=== PATIENT | male | born 2000 | race Caucasian/White ===

== ENCOUNTER 2019-05-17 09:56 | Emergency (ER) | payer BC ==
[~2019-05-17] VITALS: Ht 177.8 cm; Wt 84.1 kg
[2019-05-17 10:03] VITALS: TEMP 97.3
[2019-05-17 10:33] LABS: BASO % 0.3 % (0.0-2.0); EOS # 0.4 (0.0-0.7); EOS % 6.8 % (0-4.0); GRAN # 3.4 (1.4-6.5); LYMPH # 1.5 (1.2-3.4); LYMPH % 25.4 % (20.0-51.0); MEAN CELL VOLUME 89 fl (80.0-100.0); MEAN CORPUSCULAR HEMOGLOBIN 30 pg (27.0-31.0); MEAN CORPUSCULAR HGB CONC 34 g/dl (33.0-37.0); MEAN PLATELET VOLUME 10.5 fl (7.4-10.4); MONO # 0.6 (0.1-0.6); MONO % 9.3 % (1.7-9.3); PLATELET COUNT 186 K/mm3 (130-400); RED BLOOD COUNT 4.61 M/mm3 (4.20-5.60)
[2019-05-17 10:44] LABS: ALANINE AMINOTRANSFERASE 24 U/L (21-72); ALBUMIN 4.5 gm/dL (3.5-5.0); ALKALINE PHOSPHATASE 60 U/L (50-136); ANION GAP 7 mmol/L (7-16); AST,SGOT 20 U/L (15-37); BILIRUBIN,TOTAL 0.3 mg/dL (0.0-1.0); BLOOD UREA NITROGEN 10 mg/dL (9-20); CALCIUM 9.2 mg/dL (8.4-10.2); CARBON DIOXIDE 27 mmol/L (22-30); CHLORIDE 108 mmol/L (98-107); CREATININE, serum 1.15 (0.66-1.25); GLUCOSE 99 mg/dL (74-106); LIPASE 1216 U/L (23-300); POTASSIUM 3.8 mmol/L (3.4-5.0); SODIUM 143 mmol/L (137-145)
[2019-05-17 11:11] LABS: C-REACTIVE PROTEIN < 0.5 mg/dL (0.0-0.9)
[2019-05-17] MEDS ORDERED: ULTRAM 50MG TAB50 MG PO (12:53)
[2019-05-17 13:10] VITALS: BP 136/88; PULSE 76
== END 2019-05-17 13:10 | disposition home or self-care (01) ==
LOC: COL.ER 09:56
PROVIDERS: Nurse Practitioner Primary Care
DX: N20.1 Calculus of ureter (principal); F17.210 Nicotine dependence, cigarettes, uncomplicated
CPT/HCPCS: J1885; J2405; J7030; Q9967